=== PATIENT | female | born 1965 | race Caucasian/White ===

== ENCOUNTER 2018-04-13 00:09 | Emergency (ER) | payer BC, SELFPAY ==
[2018-04-13 00:10] VITALS: BP 151/89; PULSE 77; RESP 18; TEMP 36.6; O2SAT 100; BMI 28.8
--- NOTE | 2018-04-13 00:21 | CT_ITS ---
STUDY: CT ABDOMEN AND PELVIS WITHOUT CONTRAST REASON FOR EXAM: Female, 53 years old. Right lower quadrant pain. Right flank and right low back pain. Nausea, vomiting, diarrhea. No history of kidney stones. RADIATION DOSAGE (If Supplied By Facility): CTDIvol = ( 13.80 ) mGy, DLP = ( 703.20 ) mGycm TECHNIQUE: Transaxial images were obtained from the dome of the diaphragm to the symphysis pubis without oral contrast, and without intravenous contrast. Sagittal and coronal images were reconstructed. Individualized dose optimization techniques were used for this CT. COMPARISON: None. FINDINGS: The visualized lung bases are unremarkable. The visualized portions of the heart are within normal limits. Normal liver. Normal gallbladder and extrahepatic biliary system. Normal spleen. Normal pancreas. Normal bilateral adrenal glands. Mild right hydronephrosis secondary to a 5 x 4 x 3 mm distal ureteral stone located slightly inferior to L5-S1. Normal left kidney. Normal visualized stomach. Normal small intestine. Scattered colonic diverticulosis. The appendix well is visualized , with the tip directed superiorly, and appears normal. Normal abdominal aorta. Normal inferior vena cava. Normal retroperitoneum. No intra-abdominal free air. Normal urinary bladder. Uterus grossly normal. No adnexal mass is seen. Normal abdominal wall. L5-S1 disc space narrowing with marginal osteophytes. CT/Abdomen/Pelvis without Cont IMPRESSION: Mild right hydronephrosis secondary to a 5 mm distal ureteral stone. Colonic diverticulosis. Normal appendix. Electronically Signed: Quang Castillo MD at 3:05 EDT , Service support ,
[2018-04-13] MEDS: Ondansetron 4 MG/2 ML Vial IV (00:46)
[2018-04-13] MEDS: Ketorolac 30 MG/ML Syringe IV (00:46)
[2018-04-13] MEDS: 0.9% Normal Saline 1,000 ML 1000 ML IV (00:46)
[2018-04-13 01:01] LABS: Absolute Lymphocyte Count 2.52 X10^3/ul (0.83-4.51); Absolute Neutrophil Count 9.9 X10^3/uL (2.0-7.7); Basophil# 0.05 X10^3/uL; Basophil% 0.4 % (0-1); Eosinophil# 0.13 X10^3/uL; Hemoglobin 14.1 g/dl (12.0-15.0); Lymphocyte # 2.52 X10^3/ul (4.0); Lymphocyte % 18.7 % (19-41); Mean Corp Hgb Conc 32.8 g/gl (32-36); Mean Corpuscular Hgb 29.3 pg (27.0-32.0); Mean Corpuscular Volume 89.2 fL (81-99); Mean Platelet Vol. 9.7 fl (6.2-12.0); Monocyte# 0.89 X10^3/uL; Monocyte% 6.6 % (0-10); Neutrophil # 9.85 X10^3/uL (2.7-7.7); POSITIVE COUNT NO; POSITIVE DIFFERENTIAL NO; POSITIVE MORPHOLOGY NO; Platelet Count 349 K/mm3 (150-450); Red Blood Count 4.82 M/mm3 (4.2-5.4); White Blood Count 13.5 K/mm3 (4.4-11.0)
[2018-04-13 01:36] LABS: AST(SGOT) 14 U/L (15-37); Alanine Aminotransfer ALT/SGPT 17 U/L (13-56); Albumin, Serum 4.1 g/dL (3.2-5.0); Alkaline Phosphatase 106 U/L (45-117); Anion Gap 12 (5-15); BUN 13 mg/dL (7-18); BUN/Creat Ratio 13.3 RATIO (10-20); Bilirubin, Direct 0.11 mg/dL (0.00-0.30); Calcium,Total 9.2 mg/dL (8.5-10.1); Chloride 106 mmol/L (98-107); Creatinine, Serum 0.98 mg/dL (0.55-1.02); EST Glomerular Filtration Rate 63 mL/min (>60); Est Glom Filt Rate - Afr Amer 76 mL/min (>60); Estimated Creatinine Clearance 63.82 ml/min; Globulin 3.9 g/dL (2.2-4.2); Glucose 115 mg/dL (74-106); Lipase 105 U/L (73-393); Potassium 3.5 mmol/L (3.5-5.1); Sodium Level 143 mmol/L (136-145)
[2018-04-13 02:28] LABS: Mucous, Urine 0 SEEN /hpf (<or=2+)
[2018-04-13 02:29] LABS: Color, Urine Yellow (Yellow); Glucose, Dipstick Normal (Normal); Ketone-Dipstick 5 mg/dl (Negative); Leukocyte Esterase-Dipstick 100 /ul (Negative); Nitrite-Dipstick Negative (Negative); Occult Blood-Urine 50 /ul (Negative); Protein-Dipstick 30 mg/dl (Negative); Urine Bilirubin Dipstick Negative (Negative); Urine Clarity Sl. Cloudy (Clear); Urine Urobilinogen Normal (Normal)
[2018-04-13 02:37] VITALS: PULSE 87; RESP 22; O2SAT 97
[2018-04-13 02:42] LABS: Amorphous Sediment 2+; Bacteria RARE /hpf (None Seen); Squamous Epithelial Cells - UA 0-5 SEEN /hpf (5-10); White Blood Cells 5-10 SEEN /hpf (0-5)
[2018-04-13 02:43] LABS: Red Blood Cells-Urine 0-5 SEEN /hpf (0-5)
[2018-04-13] MEDS: Ceftriaxone 1 GM/50 ML BAG IV (03:00)
[2018-04-13] MEDS: Acetaminophen 325 MG Tablet 1000 MG PO (03:20)
--- NOTE | 2018-04-13 03:48 | ED.VISSUMM ---
- ER Visit Summary Date of Service: 04/13/18 Chief Complaint: Right flank pain History of Present Illness: The patient is a [address] Ornelas. She reports that she had the abrupt onset of right flank pain yesterday at 9 PM. It is a sharp pains 10-10 severity. It is worsened by nothing relieved by nothing. She has been nauseated and vomited multiple times. No blood or emesis. She also had 4 episodes of diarrhea. No blood in her stools or black tarry stools. No dysuria or frequency. No personal history of kidney stones. She does have a family history of kidney stones. Physical Examination: Vitals: Stable. Afebrile. General: Well-nourished and well-developed. Head: Normocephalic atraumatic. Neck: Supple, no lymphadenopathy. No JVD. Nontender. Cardiovascular: Regular rate and rhythm. No murmurs. Respiratory: No respiratory distress. Clear to auscultation bilaterally. Abdominal: Soft, mild right lower quadrant tenderness to palpation, nondistended, normal bowel sounds. No guarding, rebound, or peritoneal signs. Back: Mild right CVA tenderness. Extremities: Nontender, no edema. Skin: Normal color, no rash. Neurologic: Alert and oriented ?3. Cranial nerves II through XII are intact. Normal strength and sensation. Psych: Normal affect. Test Results: CBC is marked for a white count of 13.5 with 73 7 neutrophils and 19 lymphs lites. Chem-7 is more for glucose 115. LFTs marked for an AST of 14. Lipase normal. UA has leukocytes, blood, and 510 white blood cells with rare bacteria. CT flank shows mild right hydronephrosis secondary to a 5 mm distal ureteral stone. Normal appendix. Emergency Department Course and Treatment: Patient was treated Toradol and Zofran IV. She is resting comfortably. Her urine was sent for culture and she was given a dose of Rocephin IV. Treatment Plan: Patient will be discharged with Macrobid, Flomax, and Zofran. Instructed to follow-up Dr. Hall in 1 week if she has not passed the stone. Return to the emergency department for any worsening symptoms. Disposition: To home in improved and stable condition. Impression: 1. Right ureterolithiasis. This note was generated with [employer] software. It may contain incorrect words, spelling, and punctuation that were not noted in review of the chart prior to signing ED Disposition - Plan for ED Patient: Disposition: Home or Assisted Living Chief Complaint: Abd Pain Instructions: ED Stone Renal W Colic Prescriptions: Ondansetron [Zofran Odt] 4 mg PO Q8H PRN PRN #10 tab PRN Reason: Nausea Nitrofurantoin Macrocrystals [Macrobid] 100 mg PO Q12 #14 cap Tamsulosin HCl [Flomax] 0.4 mg PO DAILY #7 cap Naproxen [Naprosyn] 500 mg PO BID #14 tab Referrals: Justin Hall MD [STAFF PHYSICIAN] - 1 Week if not improving
[2018-04-13 04:13] VITALS: BP 129/78; PULSE 71; RESP 20; O2SAT 97
--- NOTE | 2018-04-13 04:13 | ED.RN ---
THIS NURSE REVIEWED D/C INSTRUCTIONS WITH PT. PT VERBALIZED UNDERSTANDING OF INSTRUCTIONS. IV D/C. IV CATHETER INTACT. PT TOLERATED WELL. PT DENIES FURTHER NEEDS OR QUESTIONS AT THIS TIME.PT AMBULATES FROM ROOM ON OWN WITHOUT ASSISTANCE FROM STAFF
== END 2018-04-13 04:14 | disposition home or self-care (01) ==
PROVIDERS: Emergency Provider Emergency Medicine; Family Provider Internal Medicine; PCP Internal Medicine
DX: N13.2 Hydronephrosis with renal and ureteral calculous obstruction (principal); Z84.1 Family history of disorders of kidney and ureter
CPT/HCPCS: 74176; 80048; 80076; 81001; 83690; 85025; 87086; 87088; 96361; 96365; 96375; 99283; J7030; J7050; J2405

== ENCOUNTER 2018-04-25 11:09 | Day surgery (SDC) | payer BC, SELFPAY ==
[2018-04-25] VITALS (7 sets, daily range): BP systolic 124–151; BP diastolic 77–91; PULSE 61–86; RESP 16–18; TEMP 36.1–36.6; O2SAT 96–100; BMI 28.3
--- NOTE | 2018-04-25 12:26 | DCINST_ITS ---
Discharge Diet: Light diet - advance as tolerated Discharge Activity: Return to Normal Activity Call your doctor if you observe: Fever of 101 or Higher Allergies/Adverse Reactions: Allergies codeine Adverse Reaction (Verified 04/22/18 08:18) Vomiting Opioids - Morphine Analogues Adverse Reaction (Verified 04/22/18 08:19) Other prochlorperazine [From Compazine] Adverse Reaction (Verified 04/22/18 08:18) Other Medications to take at Discharge Nitrofurantoin Macrocrystals [Macrobid] 100 mg PO Q12 #14 cap 04/13/18 Ondansetron [Zofran Odt] 4 mg PO Q8H PRN PRN #10 tab 04/13/18 Albuterol Inhaler [Ventolin Hfa (SP)] 1 puff INHALATION Q6H PRN PRN 04/22/18 Cyclobenzaprine [Flexeril] 10 mg PO TID PRN PRN 04/22/18 Sumatriptan Succinate [Imitrex] 50 mg PO .X1 PRN 04/22/18 Tramadol HCl [Ultram] 50 mg PO Q6H PRN PRN #10 tab 04/25/18 Primary Care Physician: Amy Ornelas MD [Primary Care Provider] - Test Results: Test results from this visit will be discussed in further detail at your follow- up appointment, if applicable. Please Follow Up With: Justin Hall MD When: please call to make an appointment.
--- NOTE | 2018-04-25 12:54 | OP.PCM_ITS ---
Report of Operation Date of Procedure: 04/25/18 Pre-Operative Diagnosis: Right obstructive ureteral calculi Post-Operative Diagnosis: Same Surgery/Procedure Performed:: Cystoscopy, dilation of the right ureter, right ureteroscopy laser lithotripsy of stone, right retrograde pyelogram, right stent placement Description of Surgical Findings:: 53-year-old female presented to the office with an obstructing stone in the mid ureter. Recommend we take the surgery for ureteroscopy laser lithotripsy and stent placement of the right side. 53-year-old female taken back to the operating room at the smooth induction of general anesthesia she was placed supine on the table the urethra and vaginal area were prepped and draped in usual sterile fashion, went into the bladder with a 21 [place] rigid cystourethroscope, the entire length the urethra is normal bladder neck normal the bladder is normal trigone was normal, I think cannulated the right ureteral orifice with a Glidewire wire went up easily to the ureter that I could feel the wire hit the stone and then a wire and passed a stone up into the kidney the stone was overlying the pelvis, I then attempted to go away with the ureteroscope of the ureter was too narrow and small then I used a dilator off the axis sheath and dilated the urethra and the sphincter and the ureteral orifice once the ureter was dilated then I left the wire in place and then I went in with a SlimLine rigid ureteroscope was able to get into the distal ureter now went up and encountered a stone over the pelvic brim that was lodged in the ureter. I then used a 270 ?m laser fiber performed laser lithotripsy and stone broke up a little tiny pieces there is a severe inflammation in the area with a stone was stuck was able to get past this and then the ureter was quite dilated beyond this was able later all the stone little tiny pieces that should pass on their own I then performed a retrograde pyelogram with contrast up in the kidney work my way down the ureter again the area with a stone stuck was quite inflamed and stuck but said leave a stent in over the existing wire that was in for safety wire advanced stent 6 Lithuanian by 24 cm stent, in good position pulled the wire the stent coiled in the kidney and bladder good position left the string on the stent for easy extraction. Plan is to leave the stent in for a week to let everything dilate and he heal and I will see her next to get the stent out. Type of Anesthesia:: General Drains: stent - Admit VTE Documentation VTE Present on Admission: No VTE Mechan Device Prophylaxis: SCD's VTE Pharm Prophylaxis ordered?: No Reason prophylaxis not ordered:: Treatment Not Indicated
== END 2018-04-25 14:50 | disposition home or self-care (01) ==
LOC: SDC 11:12 → AC 11:12
PROVIDERS: Family Provider Internal Medicine; PCP Internal Medicine; Visit Provider Urology
PROC: 0TJ98ZZ Inspection of Ureter, Via Natural or Artificial Opening Endoscopic (ICD-10-PCS; CPT 52352; principal; 2018-04-25 12:50)
DX: N13.2 Hydronephrosis with renal and ureteral calculous obstruction (principal); J45.20 Mild intermittent asthma, uncomplicated; G43.909 Migraine, unspecified, not intractable, without status migrainosus; Z79.899 Other long term (current) drug therapy
CPT/HCPCS: 00873; 52356; 76000; J7120; C1769; J2405